=== PATIENT | female | born 1980 | race Caucasian/White ===

== ENCOUNTER 2019-01-26 01:43 | Emergency (ER) | payer OTHER ==
[2019-01-26 01:53] VITALS: BP 140/90; TEMP 97.5
[2019-01-26] MEDS ORDERED: ZOFRAN ODT4 MG PO (03:41)
[2019-01-26 03:50] VITALS: PULSE 109
[2019-01-26] MEDS ORDERED: PROAIR HFA0.09 MG/AC IH (03:59)
[2019-01-26] MEDS ORDERED: PRENATAL FORMU1 EAC3 PO (04:00)
[2019-01-26] MEDS ORDERED: WELLBUTRIN 100100 MG PO (04:00)
== END 2019-01-26 03:50 | disposition home or self-care (01) ==
LOC: COL.ER 01:43
DX: S01.01XA Laceration without foreign body of scalp, initial encounter (principal); Z23 Encounter for immunization; Z90.89 Acquired absence of other organs; W18.30XA Fall on same level, unspecified, initial encounter; Y92.59 Other trade areas as the place of occurrence of the external cause